=== PATIENT | male | born 1955 | race Caucasian/White ===

== ENCOUNTER 2017-10-13 09:44 | Day surgery (SDC) | payer MEDICARE ==
[2017-10-10 14:04] LABS: HEMATOCRIT 45.8 % (42.0-54.0); MCH 29.5 pg (26.0-34.0); MCHC 34.9 g/dL (31.0-37.0); MCV 84.5 fL (80.0-100.0); MEAN PLATELET VOLUME 10.4 fL (7.4-10.4); RBC 5.42 10x6/uL (4.20-6.10); RDW 14.1 % (11.5-14.5); WBC 7.2 10x3/uL (4.8-10.8)
[2017-10-10 14:17] LABS: ANION GAP 11.4 mmol/L (8-16); CALCIUM 9.1 mg/dL (8.5-10.1); CARBON DIOXIDE 27.7 mmol/L (21.0-32.0); CREATININE - SERUM 1.5 mg/dL (0.6-1.3); POTASSIUM - SERUM 4.1 mmol/L (3.5-5.1)
[~2017-10-13] VITALS: Ht 170.2 cm; Wt 90.7 kg
--- NOTE | ~2017-10-13 | OP ---
PATIENT NAME: GIULIANA CORRIGAN MEDICAL RECORD: [id number] :53 LOCATION:[facility] ADMISSION DATE: SURGEON: EDY SHI MD DATE OF OPERATION: 10/13/2017 PREOPERATIVE DIAGNOSIS: Painful bony cyst of the right thumb. POSTOPERATIVE DIAGNOSIS: Painful bony cyst of the right thumb. PROCEDURE: Excision of painful bony prominence of the right thumb. SURGEON: Edy Shi MD ANESTHESIA: General. INTRAOPERATIVE COMPLICATIONS: None. SUMMARY OF PATHOLOGIC FINDINGS: The patient had more of an enchondroma. While he has a history of enchondromas, this was at the site of a previous injury likely causing the bony outgrowth that was painful on gripping. At the time of surgery, he was found to have a cartilaginous cap with bony portions of it. This was taken back to its normal anatomy. OPERATIVE SUMMARY IN DETAIL: After obtaining the appropriate preoperative orthopedic surgery consent as well as anesthetic consultation, evaluation and clearance, the patient was brought to the operating room and placed on the operating table in supine position. After adequate general TIVA anesthesia was administered, tourniquet was placed about the proximal aspect of the right upper extremity. Right upper extremity was then prepped and draped in routine sterile fashion. The arm was elevated and exsanguinated. Tourniquet was inflated to 250 mmHg. Mid linear incision was made over the ulnar aspect of the thumb. This was gently taken down. Dissection was carried down to the cyst itself. Periosteum was gently incised, and the patient was found to have a chondral cap that was first excised and sent to pathology and then the bony prominence underneath was also taken down. It was rongeured back to the patient's normal bony anatomy. Having completed this, the wound was irrigated and closed with 4-0 Prolene in an interrupted fashion. A digital thumb block was then performed for postoperative analgesia. Having completed this, sterile dressings were applied. Tourniquet was deflated. The patient was awakened and taken to recovery room in stable condition. All final needle and sponge counts were correct. TRANSINT:[id number] Voice Confirmation ID: [id number] DOCUMENT ID: [id number] EDY SHI MD at 0914 CC: [id number] DICTATION DATE: 10/15/17 08 MAINTENANCE OPERATOR: 08/22/18 0907 [facility] [place] 10/13/17 [place] [id number] [place] [id number]
[~2017-10-13 09:44] MED LIST: ANTI-DIARRHEAL; BENTYL10 MG PO; FLUTICASONE PRO16 GM NS; KEPPRA500 MG PO; LANTUS INSULIN10 ML INJ; LEVOTHROID100 MCG PO; MOBIC7.5 MG PO; NEXIUM40 MG PO; PRINIVIL10 MG PO; PROAIR HFA8.5 GM INH; PROBIOTIC OR; QUESTRAN LIGH4 G/PKT PO; ZOLOFT50 MG PO; [UNRECOGNIZED DRUG - OTHER]
[2017-10-13] MEDS ORDERED: FLOMAX0.4 MG PO (10:45)
[2017-10-13 10:54] VITALS: BP 126/85; Ht 170.2 cm; Wt 90.7 kg
[2017-10-13] MEDS ORDERED: HYDROCODONE-APA1 TAB PO (13:17)
== END 2017-10-13 14:31 | disposition home or self-care (01) ==
LOC: D.OPS 09:44 → D.PAN 13:30 → D.OPS 14:31
PROVIDERS: Anesthesiology
DX: D16.11 Benign neoplasm of short bones of right upper limb (principal); Z01.812 Encounter for preprocedural laboratory examination

== ENCOUNTER → 2018-03-05 12:09 | Outpatient (CLI) | payer MEDICARE ==
[2017-10-13 10:54] VITALS: BMI 31.4
[~2018-03-05 12:09] MED LIST changes: +FLOMAX0.4 MG PO; +HYDROCODONE-APA1 TAB PO
== END | disposition home or self-care (01) ==
LOC: D.MRI 12:09
DX: M25.561 Pain in right knee (principal)